=== PATIENT | female | born 1945 | race Caucasian/White ===

== ENCOUNTER 2022-10-15 20:01 | Emergency (ER) | payer MEDICARE ==
[2022-10-15] MEDS ORDERED: Sodium Chloride 0.9% 1000 ML 1,000 ML IV STA (20:26)
[2022-10-15] MEDS ORDERED: Sodium Chloride 0.9% 1000 ML 1,000 ML ONE ×2 (20:31→22:05)
[2022-10-15] MEDS ORDERED: Sodium Chloride 0.9% 1000 ML 1,000 ML IV SCH (22:15)
[2022-10-15 23:06] VITALS: BP 107/50; PULSE 65; O2SAT 95
--- NOTE | 2022-10-15 23:16 | ERPHSYRPT ---
- History of Present Illness Time Seen by Provider: 10/15/22 23:13 Source: patient Exam Limitations: no limitations Patient Subjective Stated Complaint: pt states "I seen Dr. Boothe and had labs done. Dr. Lynch called me to come here." Triage Nursing Assessment: pt presents to ED with daughter, pt alert and oriented x3, pt went and seen Dr. Boothe and had lab work, D dimer came back elevated. Dr. Lynch recieved the critcal value from lab d/t her being salesperson books and told pt to come in, pt has no complaints at this time, denies chest pain and shortness of breath Physician History: Patient 76-year-old female presents to our ED to obtain a CTA chest to rule out PE. Patient's primary care doctor ordered a D-dimer. D-dimer resulted as positive. The result was called into Dr. Lynch. Dr. Lynch sent patient to our ED for a CTA chest. Patient states she feels well. No chest pain or shortness of breath. No nausea vomiting or diaphoresis. Daughter at bedside. They voiced no other complaints or concerns at this time. Portions of this note were created with voice recognition technology. There may be grammatical, spelling, punctuation or sound alike errors Timing/Duration: today Severity: mild Modifying Factors: Improves With: nothing Associated Symptoms: denies symptoms Allergies/Adverse Reactions: No Known Drug Allergies Allergy (Verified 10/15/22 20:22) Home Medications: Enalapril Maleate 20 mg PO DAILY 10/15/22 [History] Rosuvastatin Calcium 5 mg PO DAILY 10/15/22 [History] hydroCHLOROthiazide [Hydrochlorothiazide] 12.5 mg PO DAILY 10/15/22 [History] Hx Tetanus, Diphtheria Vaccination/Date Given: Yes Hx Influenza Vaccination/Date Given: Yes Hx Pneumococcal Vaccination/Date Given: No Immunizations Up to Date: Yes Travel Risk - International Travel Have you traveled outside of the country in past 3 weeks: No - Coronavirus Screening Are you exhibiting any of the following symptoms?: No Close contact with a COVID-19 positive Pt in past 14-21 Days: No - Vaccine Status Have you recieved a Covid-19 vaccination: Yes Vocational Training Teacher: [employer] - Vaccination Dates Date of 2cond Vaccination (if applicable): 2019 - Review of Systems Constitutional: No Symptoms, No Fever, No Chills Eyes: No Symptoms Ears, Nose, & Throat: No Symptoms Respiratory: No Symptoms, No Cough, No Dyspnea Cardiac: No Symptoms, No Chest Pain, No Edema, No Syncope Abdominal/Gastrointestinal: No Symptoms, No Abdominal Pain, No Nausea, No Vomiting, No Diarrhea Genitourinary Symptoms: No Symptoms, No Dysuria Musculoskeletal: No Symptoms, No Back Pain, No Neck Pain Skin: No Symptoms, No Rash Neurological: No Symptoms, No Dizziness, No Focal Weakness, No Sensory Changes Psychological: No Symptoms Endocrine: No Symptoms Hematologic/Lymphatic: No Symptoms Immunological/Allergic: No Symptoms All Other Systems: Reviewed and Negative - Past Medical History Pertinent Past Medical History: Yes Neurological History: No Pertinent History ENT History: No Pertinent History Cardiac History: High Cholesterol, Hypertension Respiratory History: No Pertinent History Endocrine Medical History: No Pertinent History Musculoskeletal History: No Pertinent History GI Medical History: No Pertinent History History: No Pertinent History Psycho-Social History: No Pertinent History Female Reproductive Disorders: No Pertinent History - Past Surgical History Past Surgical History: Yes Neuro Surgical History: No Pertinent History Cardiac: No Pertinent History Respiratory: No Pertinent History Gastrointestinal: Cholecystectomy Female Surgical History: Hysterectomy, Section - Social History Smoking Status: Former smoker Exposure to second hand smoke: No Drug Use: none Patient Lives Alone: No - Nursing Vital Signs Nursing Vital Signs: Initial Vital Signs Temperature 97.7 F 10/15/22 20:18 Pulse Rate 66 10/15/22 20:18 Respiratory Rate 18 10/15/22 20:18 Blood Pressure 143/63 10/15/22 20:18 O2 Sat by Pulse Oximetry 97 10/15/22 20:18 Pain Scale Pain Intensity 0 - Physical Exam General Appearance: no apparent distress, alert Eye Exam: PERRL/EOMI, eyes nml inspection Ears, Nose, Throat Exam: normal ENT inspection, TMs normal, pharynx normal, moist mucous membranes Neck Exam: normal inspection, non-tender, supple, full range of motion Respiratory Exam: normal breath sounds, lungs clear, airway intact, No respiratory distress Cardiovascular Exam: regular rate/rhythm, normal heart sounds, normal peripheral pulses Gastrointestinal/Abdomen Exam: soft, normal bowel sounds, No tenderness, No mass Back Exam: normal inspection, normal range of motion, No CVA tenderness, No vertebral tenderness Extremity Exam: normal inspection, normal range of motion, pelvis stable Neurologic Exam: alert, oriented x 3, cooperative, normal mood/affect, nml cerebellar function, nml station & gait, sensation nml, No motor deficits Skin Exam: normal color, warm, dry, No rash Lymphatic Exam: No adenopathy SpO2 Interpretation: normal SpO2: 95 O2 Delivery: Room Air - Course Nursing assessment & vital signs reviewed: Yes - CT Exams Chest CT Interpretation: Tele-radiologist Report (2 mm lingular nodule. Coronary artery calcifications. Aorta demonstrates moderate atherosclerotic disease. Free bodies in the left shoulder.) Ordered Tests: Active Orders 24 hr Category Date Time Status IV Insertion STAT Care 10/15/22 20:26 Active CHEST WITH CONTRAST [CT] Stat Exams 10/15/22 20:54 Taken Medication Summary Generic Name Dose Route Start Last Admin Trade Name Freq PRN Reason Stop Dose Admin Sodium Chloride 1,000 mls @ 100 mls/hr 10/15/22 22:15 10/15/22 22:07 Sodium Chloride 0.9% 1000 Ml IV 11/14/22 22:14 100 mls/hr .Q10H NEELIMA Administration Discontinued Medications Generic Name Dose Route Start Last Admin Trade Name Freq PRN Reason Stop Dose Admin Sodium Chloride 1,000 mls @ 999 mls/hr 10/15/22 20:26 10/15/22 21:40 Sodium Chloride 0.9% 1000 Ml IV 10/15/22 21:26 Infused .Q1H1M STA Infusion Sodium Chloride Confirm 10/15/22 20:31 Sodium Chloride 0.9% 1000 Ml Administered 10/15/22 20:32 Dose 1,000 mls @ ud .ROUTE .STK-MED ONE - Progress Progress: improved Progress Note: CTA chest negative for PE. We went off of the labs that were obtained as an outpatient. So we that we draw labs in our ED. No indication for further work- up at this time. Will discharge home. Patient asymptomatic. Vital stable. Patient updated on findings. They agree to follow-up with primary care doctor within 48 hours for evaluation. Portions of this note were created with voice recognition technology. There may be grammatical, spelling, punctuation or sound alike errors 10/15/22 23:[address] Devi Will see patient in: office Counseled pt/family regarding: diagnosis, need for follow-up, rad results - Departure Departure Disposition: Home Clinical Impression: Lung nodule, Coronary artery calcification, Atherosclerotic disease, Free bodies in the left shoulder Condition: Stable Critical Care Time: No Referrals: PITO BOOTHE, [Primary Care Provider] - Follow up/PCP as directed Additional Instructions: Discharge/Care Plan MARIA ESTHER MASON was seen on 10/15/22 in the Emergency Room. The patient was counseled regarding Diagnosis,Lab results, Imaging studies, need for follow up and when to return to the Emergency Room. Prescriptions given: Discharge Note I have spoken with the patient and/or caregivers. I have explained the patient's condition, diagnosis and treatment plan based on the information available to me at this time. I have answered the patient's and/or caregiver's questions and addressed any concerns. The patient and/or caregivers have as good understanding of the patient's diagnosis, condition and treatment plan as can be expected at this point. The vital signs have been stable. The patient's condition is stable and appropriate for discharge from the emergency department. The patient will pursue further outpatient evaluation with the primary care physician or other designated or consulting physician as outlined in the discharge instructions. The patient and/or caregivers are agreeable to this plan of care and follow-up instructions have been explained in detail. The patient and/or caregivers have received these instruction. The patient/and or caregivers are aware that any significant change in condition or worsening of symptoms should prompt an immediate return to this or the closest emergency department or call 911.
--- NOTE | 2022-10-16 08:45 | XRAY ---
Indication: Cough. Elevated d-dimer. Multiple contiguous images obtained through the chest using 100 cc Isovue 370 contrast and PE protocol. Comparison: None Good opacification of the pulmonary arteries including lobar and segmental branches. No pulmonary embolus. Heart borderline enlarged. Aorta is minimally arteriosclerotic without aneurysm/dissection. No pathologic mediastinal/hilar lymphadenopathy. Small hiatal hernia. Lungs demonstrates minimal bibasilar fibrosis/scarring and minimal bilateral dependent atelectasis. No suspicious pulmonary mass, infiltrate, effusion, or pneumothorax. Bony thorax intact with mild osteopenia, mild/moderate degenerative changes throughout the spine, and L1 vertebral hemangioma. Limited upper abdomen demonstrates cholecystectomy clips. Impression: 1. Negative pulmonary embolus. 2. Borderline cardiomegaly. No acute cardiopulmonary abnormalities. 3. Minimal pulmonary fibrosis/scarring, small hiatal hernia, and chronic bony findings. Comment: Preliminary interpretation made by [facility]. No critical discrepancy.
== END 2022-10-15 23:25 | disposition home or self-care (01) ==
LOC: ED 20:01
DX: R91.1 Solitary pulmonary nodule (principal); I25.10 Atherosclerotic heart disease of native coronary artery without angina pectoris; I70.90 Unspecified atherosclerosis; M24.012 Loose body in left shoulder; R79.1 Abnormal coagulation profile; E78.5 Hyperlipidemia, unspecified; I10 Essential (primary) hypertension; Z79.899 Other long term (current) drug therapy
CPT/HCPCS: 36000; 71260; 96360; 99284